=== PATIENT | female | born 1950 | race Caucasian/White ===

== ENCOUNTER → 2018-06-07 | Outpatient (CLI) | payer MEDICARE ==
[2018-06-07 14:58] LABS: HCT 41.3 % (34.0-46.0); HGB 14.4 gm/dL (11.4-16.0); MCH 28.2 pg (25.0-35.0); MCV 80.7 fL (80.0-100.0); Mean Platelet Volume 7.6; Platelet Count 350 k/uL (150-450); RBC 5.11 m/uL (3.80-5.40); RDW 14.6 % (11.5-15.5); WBC 13.7 k/uL (3.8-10.6)
== END ==
LOC: LABPAT 14:01
PROVIDERS: ATTEND Anesthesiology
DX: Z01.818 Encounter for other preprocedural examination (principal); Z01.812 Encounter for preprocedural laboratory examination
CPT/HCPCS: 36415; 85027; 93005

== ENCOUNTER 2018-06-10 07:04 | Inpatient (IN) | payer MEDICARE ==
[2018-06-02 16:11] VITALS: BMI 32.0
[~2018-06-10 07:04] MED LIST: DEXAMETHASONE SOD PHOSPHATE 10 MG/ML 1 ML VIAL IV ONE; LIDOCAINE 1% 20 ML VIAL (10MG/ML) FOR IV START INTRADERMA PRN; MIDAZOLAM (PF) 2 MG/2 ML VIAL IV PRN; ceFAZolin 1,000 MG in DEXTROSE/WATER 1 50ML.BAG IVPB ONE; fentaNYL (PF) 50 MCG/ML 2 ML AMP IV PRN; fentaNYL (PF) 50 MCG/ML 20 ML VIAL IVP PRN
[2018-06-10] MEDS: LACTATED RINGERS 1,000 ML IV SCH ×2 (08:01→10:59)
[2018-06-10] MEDS ORDERED: ONDANSETRON 4 MG/2 ML VIAL IVP ONE (08:02)
[2018-06-10] MEDS ORDERED: LIDOCAINE 1% INJ 10MG/ML (20 ML MDV) ONE (09:03)
[2018-06-10] MEDS ORDERED: fentaNYL (PF) 50 MCG/ML 2 ML AMP ONE (09:03)
[2018-06-10] MEDS ORDERED: MIDAZOLAM 2 MG/2 ML VIAL ONE (09:03)
[2018-06-10] MEDS ORDERED: PROPOFOL 10 MG/ML 20 ML VIAL IV ONE (09:03)
[2018-06-10] MEDS ORDERED: ROCURONIUM BROMIDE 10 MG/ML 10 ML VIAL IV ONE (09:03)
[2018-06-10] MEDS ORDERED: SUCCINYLCHOLINE CHLORIDE 100 MG/5 ML SYR IV ONE (09:03)
[2018-06-10] MEDS ORDERED: HYDROmorphone (PF) 1 MG/ML ONE (09:03)
[2018-06-10] MEDS ORDERED: ROPIVACAINE 5 MG/ML 30 ML VIAL MISCELLANE ONE (09:45)
[2018-06-10] MEDS ORDERED: ARIPiprazole 5 MG TAB PO PRN (10:10)
[2018-06-10] MEDS ORDERED: LORazepam 0.5 MG TAB PO PRN (10:10)
[2018-06-10] MEDS ORDERED: LACTATED RINGERS 1,000 ML IV ONE (10:43)
[2018-06-10] MEDS ORDERED: ONDANSETRON 4 MG/2 ML VIAL IVP PRN (10:44)
[2018-06-10] MEDS ORDERED: IPRATROPIUM-ALBUTEROL 3 ML NEB IH PRN (10:44)
[2018-06-10] MEDS ORDERED: DEXTROSE 5%-0.45% NACL 1,000 ML IV SCH (10:44)
[2018-06-10] MEDS ORDERED: HYDROmorphone 1 MG/ML 1 ML SYRINGE IVP ONE ×2 (11:21→18:13)
[2018-06-10] MEDS: KETOROLAC 30 MG/ML 1 ML VIAL IVP SCH ×2 (11:21→18:30)
[2018-06-10 11:29] LABS: ABG Base Excess -0.9 mmol/L; ABG HCO3 27 mmol/L (21-25); ABG Oxygen Saturation 95.3 % (94-97); ABG PCO2 63 mmHg (35-45); ABG PH 7.24 (7.35-7.45); ABG PO2 97 mmHg (83-108); ABG TCO2 29 mmol/L (19-24)
--- NOTE | 2018-06-10 11:37 | XR ---
EXAMINATION TYPE: XR chest 1V portable DATE OF EXAM: 06/10/2018 COMPARISON: 04/11/2018 HISTORY: Post chest tube TECHNIQUE: Single frontal view of the chest is obtained. FINDINGS: There is a small 5% right apical pneumothorax with subcutaneous emphysema. Diffuse interst itial pattern with bilateral consolidation and tiny bilateral pleural effusion. Heart size stable. Ar thropathy of the shoulders. Underlying chronic interstitial lung disease suspected. Correlate for TABLE WORKER PACKAGER D. IMPRESSION: 1. There is a right-sided chest tube with an approximate 5% right apical pneumothorax. 2. Interstitial pattern appears increased from the prior exam correlate for interstitial congestion o r pneumonitis. Bilateral infiltrate and tiny effusion are also noted.
--- NOTE | 2018-06-10 12:29 | OP ---
OPERATIVE REPORT PREOPERATIVE DIAGNOSIS: Interstitial lung disease. POSTOPERATIVE DIAGNOSIS: Interstitial lung disease. PROCEDURE: Right VATS lung biopsy. SURGEON: Meliton Duncan MD. CHIEF OPTOMETRY SERVICE: VADIM Fernandez. ANESTHESIA: General. SPECIMEN: 1. Right upper lobe wedge. 2. Right lower lobe wedge. ESTIMATED BLOOD LOSS: Minimal. COMPLICATIONS: None. INDICATION: The patient is a 67-year-old female with a past medical history significant for obstructive sleep apnea, COPD, tobacco use and a vocal cord polyp who reports chronic cough and chronic dyspnea on exertion. A lung biopsy was requested by the pulmonary service. The risks, benefits, and alternatives to VATS lung biopsy were discussed with the patient. All of her questions were answered. Consent was obtained. FINDINGS: There were no obvious masses noted in the right upper lobe, right middle lobe, or right lower lobe. There was no significant pleural effusion. There was no studding on the chest wall. The lung tissue itself appeared to have a fair amount of anthracosis. PROCEDURE IN DETAIL: The patient was taken the operating room and placed supine on the operating table. After induction of anesthesia, a double-lumen endotracheal tube was placed by the anesthesia service. Its position was confirmed using a bronchoscope. The patient was then placed in a left lateral decubitus position with the right side up. Care was taken to pad all pressure points. The right chest and flank were then prepped and draped in the usual sterile fashion. With the right lung deflated, the right chest was entered at approximately the 6th intercostal space along the posterior axillary line. A thoracoscope was introduced. Initial inspection revealed no significant pleural effusion. There was no studding along the chest wall. There were no obvious masses in the lung. Two additional working ports were then placed under direct vision. A wedge resection of the right upper lobe was then performed using the endoscopic stapling device with two 45 mm purple loads. The staple line was intact at the completion of this procedure. A second wedge resection was then performed in the right lower lobe in a similar fashion. Two 45 mm purple loads were again used. Again the staple line was intact. Both biopsies were sent to microbiology and pathology. Hemostasis was assured. A straight 28-[place] chest tube was then placed and directed posteriorly towards the apex. The right lung was inflated and appeared to expand nicely. There was no obvious air leak. The wounds were then closed in layers. Sterile dressings were applied. The patient appeared to tolerate the procedure well. There were no immediate complications. She was extubated at the completion of the case and returned to the recovery room in stable condition. BA / GUILLAUME: [id number] / MTDD
[2018-06-10] MEDS: IPRATROPIUM-ALBUTEROL 3 ML NEB IH SCH ×3 (12:35→21:30)
[2018-06-10] MEDS: traMADol 50 MG TAB PO SCH ×3 (15:28→22:11)
[2018-06-10] MEDS ORDERED: HYDROmorphone 0.5 MG/0.5 ML SYRINGE IVP STA (18:11)
--- NOTE | 2018-06-10 18:16 | CONS ---
CONSULTATION PULMONARY CRITICAL CARE CONSULTATION: DATE OF SURGERY: 06/10/2018 This is a 67-year-old female who was referred to Dr. Duncan for consideration of a lung biopsy. The patient was seen by Dr. Maldonado for shortness of breath and interstitial lung disease. The patient had a biopsy done today. She is resting comfortably. The biopsy was done on the right side. The patient is resting comfortably, as I mentioned. I did explain to her that it would take a number of days to get the biopsy results. She apparently presented with an abnormal chest x-ray and CT scan and had symptoms of shortness of breath. She was seen in the office by Dr. Maldonado. She was referred to Dr. Duncan for a biopsy. PAST MEDICAL HISTORY: Includes: 1. Sleep apnea syndrome. 2. Vocal cord polyp. 3. Interstitial lung disease. 4. Hyperlipidemia. 5. GERD. 6. Depression. 7. COPD. 8. Anxiety. SURGICAL HISTORY: Includes: 1. x3. 2. D&C. 3. Tonsillectomy and adenoidectomy. 4. Excision of vocal cord polyp. HOME MEDICATIONS: Include: 1. Abilify. 2. Ativan. 3. Atorvastatin. 4. Calcium replacement. 5. Fish oil. 6. Nicotine patch. 7. Omeprazole. 8. Pamelor. 9. Zoloft. 10.Tramadol. 11.Vitamin C. ALLERGIES: LEVAQUIN. SOCIAL HISTORY: Positive for significant tobacco history. She quit in 2017. Social alcohol only. No illicit drug use. FAMILY HISTORY: Positive for CHF and cancer. REVIEW OF SYSTEMS: CONSTITUTIONAL: Negative. NEUROLOGIC: Negative. HEENT: Negative. CARDIOVASCULAR: Negative. PULMONARY: Shortness of breath, dry non-productive cough. GI/: Negative. RHEUMATOLOGIC/IMMUNOLOGIC: Negative. ENDOCRINOLOGIC: Negative. PHYSICAL EXAMINATION: Current vital signs include a temperature of 97.2, heart rate 89, respiratory rate 20, blood pressure 117/58, room-air saturation 93%. Appears in no acute distress. HEENT examination is grossly unremarkable. Mucous membranes are moist. No oral lesions. NECK: Supple. Full range of motion. No adenopathy or thyromegaly. Neck veins are flat. Cardiovascular examination reveals regular rhythm and rate. Heart rate about 85 beats per minute. S1, S2 normal. No S3, S4 or murmur. LUNGS: Some bibasilar crackles. She does not take deep breaths because of her recent surgery. Breath sounds are equal bilaterally. No rhonchi. ABDOMEN: Soft. Bowel sounds are heard. Extremities are intact. No cyanosis, clubbing or edema. LABS: Reviewed. The patient had a blood gas showing a PO2 of 97 and pCO2 of 63 and a pH of 7.24. This is consistent with mild hypercapnic respiratory failure. No additional labs to report. Chest x-ray shows some interstitial changes and a chest tube on the right side. Looking at the Pleur-evac, there was no air leak. ASSESSMENT: 1. Postoperative day number zero, status post right-sided lung biopsy, video-assisted, for interstitial lung disease. 2. Shortness of breath and dry non-productive cough secondary to interstitial lung disease. 3. Sleep apnea syndrome. 4. Vocal cord polyp. 5. Hyperlipidemia. 6. Gastroesophageal reflux disease. 7. Depression. 8. Chronic obstructive pulmonary disease. 9. Anxiety. PLAN: The patient had a biopsy done today. She is doing relatively well. She may be discharged tomorrow. The patient does not have an air leak. The patient is not requiring any supplemental oxygen. I did explain to her it may take a couple weeks before we get the actual official biopsy results, as typically these samples are sent to [facility] for evaluation. She understands. She will follow up with my partner. No additional recommendations are made. MMODL / IJN: [id number] /
[2018-06-10] MEDS: HEPARIN SODIUM,PORCINE 5,000 UNIT/ML 1 ML VIAL SQ SCH (18:32)
[2018-06-10] MEDS: ceFAZolin IN SWFI 2 GM/20 ML SYRINGE IVP SCH (20:51)
[2018-06-10] MEDS ORDERED: NORTRIPTYLINE 25 MG CAP PO SCH (21:00)
[2018-06-10] MEDS ORDERED: SERTRALINE 50 MG TAB PO SCH (21:00)
[2018-06-10] MEDS ORDERED: ATORVASTATIN 80 MG TAB PO SCH (21:00)
[2018-06-11] MEDS: KETOROLAC 30 MG/ML 1 ML VIAL IVP SCH ×2 (00:20→06:31)
[2018-06-11] MEDS: HEPARIN SODIUM,PORCINE 5,000 UNIT/ML 1 ML VIAL SQ SCH ×2 (00:21→09:27)
[2018-06-11] MEDS: ceFAZolin IN SWFI 2 GM/20 ML SYRINGE IVP SCH (02:59)
--- NOTE | 2018-06-11 06:59 | XR ---
EXAMINATION TYPE: XR chest 1V DATE OF EXAM: 06/11/2018 HISTORY: post lung biopsy. REFERENCE: Previous study dated 06/10/2018. FINDINGS: Right pleural drain remains in place. There continues to be tiny right apical pneumothorax. The heart is not enlarged. Pleural spaces are clear. There is vascular congestion and interstitial ch hitesh. This may have worsened slightly from previous. This may represent pulmonary edema or interstiti al lung disease. IMPRESSION: 1. TINY, RESIDUAL APICAL PNEUMOTHORAX ON THE RIGHT. 2. VASCULAR CONGESTION AND INTERSTITIAL CHANGE LIKELY REFLECTING PULMONARY EDEMA.
[2018-06-11] MEDS ORDERED: PANTOPRAZOLE 40 MG TABLET PO SCH (07:30)
[2018-06-11] MEDS: IPRATROPIUM-ALBUTEROL 3 ML NEB IH SCH ×2 (07:56→11:57)
[2018-06-11 07:59] LABS: Calcium 8.8 mg/dL (8.4-10.2); Potassium 4.3 mmol/L (3.5-5.1)
[2018-06-11 08:21] LABS: Basophils # (A) 0.1 k/uL (0-0.2); Basophils % (A) 0 %; Eosinophils # (A) 0.4 k/uL (0-0.7); Eosinophils % (A) 3 %; HCT 32.7 % (34.0-46.0); Lymphocytes # (A) 3.3 k/uL (1.0-4.8); Lymphocytes % (A) 28 %; MCH 27.5 pg (25.0-35.0); MCHC 33.7 g/dL (31.0-37.0); MCV 81.6 fL (80.0-100.0); Mean Platelet Volume 6.9; Monocytes # (A) 0.5 k/uL (0-1.0); Monocytes % (A) 4 %; Neutrophils # (A) 7.4 k/uL (1.3-7.7); Neutrophils % (A) 63 %; Platelet Count 280 k/uL (150-450); RBC 4.01 m/uL (3.80-5.40); RDW 14.6 % (11.5-15.5); WBC 11.8 k/uL (3.8-10.6)
[2018-06-11] MEDS ORDERED: NON-FORMULARY DRUG (Omega-3 Fatty Acids/Fish Oil [Fish Oil 1,000 Mg Softgel] 1 EACH) PO SCH (09:00)
[2018-06-11] MEDS ORDERED: ASCORBIC ACID 500 MG TAB PO SCH (09:00)
[2018-06-11] MEDS: traMADol 50 MG TAB PO SCH ×2 (09:26→12:48)
--- NOTE | 2018-06-11 09:50 | P.PN ---
Subjective Progress Note Date: 06/11/18 Principal diagnosis: Interstitial lung disease. Previous medical history of previous tobacco dependence, COPD, nightly home oxygen use, sleep apnea syndrome, vocal cord polyp, hyperlipidemia, GERD, depression. POD 1 right video-assisted thoracoscopic lung biopsy. The patient is currently sitting up in bed in no acute distress. States pain is well controlled on current medication regimen. Denies shortness of breath. Did have an episode last night of chest wall movement with increased pain, this has resolved as of this morning. Chest tube to waterseal, no air leak present. She has ambulated to and from the bathroom. Objective - Vital Signs Vital signs: Vital Signs Temp 99.3 F 06/11/18 04:00 Pulse 93 06/11/18 08:10 Resp 16 06/11/18 04:00 BP 97/64 06/11/18 04:00 Pulse Ox 95 06/11/18 04:00 Intake & Output 06/10/18 06/11/18 06/11/18 18:59 06:59 18:59 Intake Total 2460 400 Output Total 79 107 Balance 2381 293 Weight 77.6 kg Intake: IV 2450 Intake, IV Titration 400 Amount Dextrose 5%-0.45% NaCl 1, 400 000 ml @ 40 mls/hr IV . Q24H [facility] Rx#:[id number] Oral 10 Output: Chest Tube Drainage 107 Chest Tube 107 Urine 1 Estimated Blood Loss 78 Other: # Voids 1 - Constitutional General appearance: Present: cooperative, no acute distress, obese - Respiratory Details: Lung sounds diminished bilaterally, right greater than left. Respirations even , nonlabored. Currently on 2 L nasal cannula with oxygen saturation 95%. Able to achieve 500 mL on incentive spirometry. Strong productive cough. Right pleural chest tube to waterseal, 65 mL serosanguineous drainage overnight, 190 mL since surgery. No air leak present. - Cardiovascular Details: S1, S2 present. Regular rate and rhythm, sinus rhythm on telemetry. Palpable peripheral pulses bilaterally. No edema present. No calf pain or tenderness noted. SCDs present. - Gastrointestinal Gastrointestinal Comment(s): Abdomen soft, nontender, nondistended. Active bowel sounds present 4 quadrants. Tolerating diet. - Genitourinary Genitourinary Comment(s): Continues to void clear, yellow urine. - Integumentary Integumentary Comment(s): Skin is warm and dry with evidence of good perfusion. - Neurologic Neurologic: Present: CNII-XII intact - Musculoskeletal Musculoskeletal: Present: gait normal, strength equal bilaterally - Psychiatric Psychiatric: Present: A&O x's 3, appropriate affect, intact judgment & insight - Allied health notes Allied health notes reviewed: nursing - Labs CBC & Chem 7: 06/11/18 06:14 06/11/18 06:14 Labs: Abnormal Lab Results - Last 24 Hours (Table) 06/10/18 06/11/18 Range/Units 11:27 06:14 WBC 11.8 H (3.8-10.6) k/uL Hgb 11.0 L D (11.4-16.0) gm/dL Hct 32.7 L (34.0-46.0) % ABG pH 7.24 L (7.35-7.45) ABG pCO2 63 H (35-45) mmHg ABG HCO3 27 H (21-25) mmol/L ABG Total CO2 29 H (19-24) mmol/L Microbiology - Last 24 Hours (Table) 06/10/18 10:16 Gram Stain - Preliminary Lung - Right Lower Lobe Tissue Culture - Preliminary 06/10/18 10:16 Gram Stain - Preliminary Lung - Right Upper Lobe Tissue Culture - Preliminary 06/10/18 10:16 Anaerobic Culture - Preliminary Lung - Right Lower Lobe 06/10/18 10:16 Fungal Culture - Preliminary Lung - Right Upper Lobe 06/10/18 10:16 Anaerobic Culture - Preliminary Lung - Right Upper Lobe 06/10/18 10:16 Fungal Culture - Preliminary Lung - Right Lower Lobe - Imaging and Cardiology Chest x-ray: report reviewed, image reviewed Assessment and Plan (1) Interstitial lung disease Current Visit: Yes Status: Chronic Code(s): J84.9 - INTERSTITIAL PULMONARY DISEASE, UNSPECIFIED SNOMED Code(s): 456392809 (2) Sleep apnea syndrome Current Visit: Yes Status: Chronic Code(s): G47.30 - SLEEP APNEA, UNSPECIFIED SNOMED Code(s): 12570748 (3) Hyperlipidemia Current Visit: Yes Status: Chronic Code(s): E78.5 - HYPERLIPIDEMIA, UNSPECIFIED SNOMED Code(s): 47303061 (4) GERD (gastroesophageal reflux disease) Current Visit: Yes Status: Chronic Code(s): K21.9 - GASTRO-ESOPHAGEAL REFLUX DISEASE WITHOUT ESOPHAGITIS SNOMED Code(s): 007244061 (5) Depression Current Visit: Yes Status: Chronic Code(s): F32.9 - MAJOR DEPRESSIVE DISORDER, SINGLE EPISODE, UNSPECIFIED SNOMED Code(s): 58631220 (6) COPD (chronic obstructive pulmonary disease) Current Visit: Yes Status: Chronic Code(s): J44.9 - CHRONIC OBSTRUCTIVE PULMONARY DISEASE, UNSPECIFIED SNOMED Code(s): 21026120 (7) On home oxygen therapy Current Visit: Yes Status: Chronic Code(s): Z99.81 - DEPENDENCE ON SUPPLEMENTAL OXYGEN SNOMED Code(s): 805642344713 Plan: 1. Chest tube was clamped. Will release and if no air leak will discontinue chest tube. Will repeat chest x-ray and if stable will discharge to home. 2. Wean O2. Encourage incentive spirometry 10 times every hour while awake. 3. Pain control with current medication regimen. 4. Bronchodilators per pulmonology. 5. GI prophylaxis with Protonix, DVT prophylaxis with subcu heparin, SCDs. 6. Increase activity, ambulate in hallway. 7. Follow-up appointments made for Dr. Duncan and Dr. Maldonado. Time with Patient: Greater than 30
[2018-06-11 10:41] VITALS: RESP 18
--- NOTE | 2018-06-11 12:31 | P.PN ---
Subjective Progress Note Date: 06/11/18 Principal diagnosis: Interstitial lung disease unclear etiology This is a very pleasant 67-year-old female patient who follows with Dr. Collado as her primary care physician. She has a history of hyperlipidemia, GERD, depression, anxiety. She also has history of obstructive sleep apnea and interstitial lung disease and follows with Dr. Maldonado in our office for the same. He wanted further investigation regarding the etiology of the ILD and she was admitted electively for a open lung biopsy form by Dr. Duncan yesterday. Pathology is pending. Today's chest x-ray shows a tiny residual apical pneumothorax on the right with some subcutaneous emphysema. Chest tube to water seal. Chest x-ray is pending. She is currently sitting up in a chair at the bedside. She is awake and alert in no acute distress. She is currently maintaining good O2 saturations in the 90s on 2 L/m per nasal cannula. She's afebrile. Hemodynamically stable. He is working well with the incentive spirometer. Objective - Vital Signs Vital signs: Vital Signs Temp 98.0 F 06/11/18 08:00 Pulse 96 06/11/18 12:12 Resp 18 06/11/18 08:00 BP 107/57 06/11/18 08:00 Pulse Ox 93 L 06/11/18 08:00 Intake & Output 06/10/18 06/11/18 06/11/18 18:59 06:59 18:59 Intake Total 2460 400 240 Output Total 79 107 30 Balance 2381 293 210 Weight 77.6 kg Intake: IV 2450 Intake, IV Titration 400 Amount Dextrose 5%-0.45% NaCl 1, 400 000 ml @ 40 mls/hr IV . Q24H [facility] Rx#:[id number] Oral 10 240 Output: Chest Tube Drainage 107 30 Chest Tube 107 30 Urine 1 Estimated Blood Loss 78 Other: Voiding Method Toilet # Voids 1 - Exam GENERAL EXAM: Alert, active, comfortable in no apparent distress. HEAD: Normocephalic. EYES: Normal reaction of pupils, equal size. NOSE: Clear with pink turbinates. THROAT: No erythema or exudates. NECK: No masses, no JVD. CHEST: No chest wall deformity. Subcutaneous emphysema the right clavicle area. Chest tube to water seal. LUNGS: Equal air entry with no crackles, wheeze, rhonchi or dullness. CVS: S1 and S2 normal with no audible murmur, regular rhythm. ABDOMEN: No hepatosplenomegaly, normal bowel sounds, no guarding or rigidity. SPINE: No scoliosis or deformity SKIN: No rashes CENTRAL NERVOUS SYSTEM: No focal deficits, tone is normal in all 4 extremities. EXTREMITIES: There is no peripheral edema. No clubbing, no cyanosis. Peripheral pulses are intact. - Labs CBC & Chem 7: 06/11/18 06:14 06/11/18 06:14 Labs: Abnormal Lab Results - Last 24 Hours (Table) 06/11/18 Range/Units 06:14 WBC 11.8 H (3.8-10.6) k/uL Hgb 11.0 L D (11.4-16.0) gm/dL Hct 32.7 L (34.0-46.0) % Microbiology - Last 24 Hours (Table) 06/10/18 10:16 Gram Stain - Preliminary Lung - Right Upper Lobe Tissue Culture - Preliminary 06/10/18 10:16 Gram Stain - Preliminary Lung - Right Lower Lobe Tissue Culture - Preliminary 06/10/18 10:16 Anaerobic Culture - Preliminary Lung - Right Lower Lobe 06/10/18 10:16 Fungal Culture - Preliminary Lung - Right Upper Lobe 06/10/18 10:16 Anaerobic Culture - Preliminary Lung - Right Upper Lobe 06/10/18 10:16 Fungal Culture - Preliminary Lung - Right Lower Lobe Assessment and Plan Assessment: Impression: #1 Interstitial lung disease, status post right-sided lung biopsy, video- assisted. Postoperative day #1. Chest tube in place. #2 Shortness of breath dry nonproductive cough secondary to interstitial lung disease. #3 Obstructive sleep apnea. #4 Vocal cord polyp. #5 Hyperlipidemia. #6 Gastroesophageal reflux disease. #7 chronic obstructive pulmonary disease. #8 Anxiety/depression. Plan: The patient was seen and evaluated by Dr. Rosales. Chest x-ray was reviewed. Chest tube to water seal. No air leak currently. If no significant complications once the chest tube is removed she will be discharged home today. She'll follow up with Dr. Maldonado in our office. She'll continue utilizing incentive spirometer. Continue home medications. I, the cosigning physician, performed a history & physical examination of the patient. Lungs sounds scattered rhonchi in the right. Maintaining good O2 saturations in the 90s on 2 L/m per nasal cannula. I discussed the assessment and plan of care with my nurse practitioner, Mari Reyes. I attest to the above note as dictated by her.
[2018-06-11 13:29] VITALS: BP 115/72; PULSE 92; TEMP 99.3
--- NOTE | 2018-06-12 09:31 | P.DS ---
Providers Date of admission: 06/10/18 07:04 Expected date of discharge: 06/11/18 Attending physician: Meliton Duncan Consults: 06/10/18 13:36 Consult Physician Routine Consulting Provider: Wilson Rosales Reason/Comments: s/p lung biopsy, Dr. Maldonado's patient Do you want consulting provider notified?: Yes Primary care physician: Wilson Collado - Discharge Diagnosis(es) (1) Interstitial lung disease Status: Chronic (2) Sleep apnea syndrome Status: Chronic (3) Hyperlipidemia Status: Chronic (4) GERD (gastroesophageal reflux disease) Status: Chronic (5) Depression Status: Chronic (6) COPD (chronic obstructive pulmonary disease) Status: Chronic (7) On home oxygen therapy Status: Chronic Hospital Course: FINAL DIAGNOSIS: 1. Interstitial lung disease 2. Previous tobacco dependence 3. COPD 4. Nightly home oxygen use 5. Sleep apnea syndrome 6. Vocal cord polyp 7. Hyperlipidemia 8. GERD 9. Depression PRINCIPAL PROCEDURE: 1. Right video-assisted thoracoscopic lung biopsy HISTORY OF PRESENT ILLNESS: This is a 67-year-old female patient who follows with Dr Collado and Dr. Maldonado on an outpatient basis. She is a history of heavy tobacco use was originally diagnosed with a polyp on her vocal cord which was excised by ENT. Since that time she has continued to report a chronic cough and chronic dyspnea on exertion. She has followed up with Dr. Maldonado and did have a normal pulmonary function test. A computed tomography scan of the chest was performed in November 2017 and demonstrated no evidence of lung mass or pleural effusion, but there was evidence of interstitial lung disease involving the upper and lower lobes suggestive of pulmonary fibrosis. Dr. Maldonado requested a lung biopsy and the patient was referred to Dr. Duncan from cardiothoracic surgery. She was recommended to undergo thoracoscopic lung biopsy. The usual perioperative course was discussed in detail with the patient and her family, all risks and benefits were explained, all questions were answered, and consent was obtained to proceed with surgery. HOSPITAL COURSE: The patient was brought to the hospital on 06/10/2018, taken to the preoperative area, prepared in the usual fashion, and subsequently taken to the operating room where Dr. Duncan performed a right video-assisted thoracoscopic lung biopsy. Upon completion of surgery the patient was extubated and taken to the recovery room where she was recovered and monitored hemodynamically. She was eventually admitted to 3 S. cardiac stepdown unit for further monitoring. Her chest tube was placed to waterseal the night of surgery as she had no air leak, follow-up x-ray in the morning was stable, she had no air leak, and her right-sided chest tube was discontinued the day after surgery. Her oxygen was titrated down, she was tolerating oral diet, her pain was controlled, and she was ready to be discharged to home on postoperative day #1. She received written and verbal instruction regarding her medications, activity restrictions, signs and symptoms requiring physician notification, and follow-up appointments. COMPLICATIONS: The patient experienced no postoperative complications. Patient Condition at Discharge: Stable Plan - Discharge Summary Discharge Rx Participant: No New Discharge Prescriptions: Continue Nortriptyline HCl [Pamelor] 25 mg PO HS ARIPiprazole [Abilify] 5 mg PO DAILY PRN PRN Reason: Anxiety Omeprazole [PriLOSEC] 20 mg PO AC-BRKFST Atorvastatin [Lipitor] 80 mg PO HS Sertraline [Zoloft] 150 mg PO HS [place]-3 Fatty Acids/Fish Oil [Fish Oil 1,000 mg Softgel] 1 cap PO DAILY Ascorbic Acid [Vitamin C] 1,000 mg PO DAILY traMADol HCL [Ultram] 50 mg PO Q12H PRN PRN Reason: Pain LORazepam [Ativan] 0.5 mg PO DAILY PRN PRN Reason: Anxiety Albuterol Inhaler [Ventolin Hfa Inhaler] 1 - 2 puff INHALATION RT-Q6H PRN PRN Reason: Dyspnea Discharge Medication List ARIPiprazole [Abilify] 5 mg PO DAILY PRN 06/02/18 [History] Albuterol Inhaler [Ventolin Hfa Inhaler] 1 - 2 puff INHALATION RT-Q6H PRN [History] Ascorbic Acid [Vitamin C] 1,000 mg PO DAILY 06/02/18 [History] Atorvastatin [Lipitor] 80 mg PO HS 06/02/18 [History] LORazepam [Ativan] 0.5 mg PO DAILY PRN 06/02/18 [History] Nortriptyline HCl [Pamelor] 25 mg PO HS 06/02/18 [History] [place]-3 Fatty Acids/Fish Oil [Fish Oil 1,000 mg Softgel] 1 cap PO DAILY [History] Omeprazole [PriLOSEC] 20 mg PO AC-BRKFST 06/02/18 [History] Sertraline [Zoloft] 150 mg PO HS 06/02/18 [History] traMADol HCL [Ultram] 50 mg PO Q12H PRN 06/02/18 [History] Follow up Appointment(s)/Referral(s): Andreia Maldonado MD [STAFF PHYSICIAN] - 06/14/18 11:00 am Meliton Duncan MD [STAFF PHYSICIAN] - 06/24/18 10:00 am Patient Instructions/Handouts: Video Assisted Thoracoscopic Surgery (DC) Activity/Diet/Wound Care/Special Instructions: DISCHARGE INSTRUCTIONS: 1. No driving for 2 weeks, or until physician gives their ok. 2. The patient should sleep in their own bed, no medical bed needed. 3. No lifting, pushing, or pulling more than 10 pounds for 2 weeks. The physician will advise of any restriction changes. 4. Continue pain control per as needed orders. 5. Continue with incentive spirometry and splinting until otherwise directed by the physician. 6. May shower daily beginning 06/13/2018. Please leave dressing on until then. May reinforce current dressing if draining. 7. Routine incision care. No powders, lotions, ointments on incisions. 8. Please call surgeon/FINAL ASSEMBLY WORKER for temp greater than 101 F or purulent drainage from incisions. ALBARO [place] (Please call with any concerns) Discharge Disposition: HOME SELF-CARE
== END 2018-06-11 13:34 | disposition home or self-care (01) | DRG 165 ==
LOC: 2ORMAIN 07:04 → 3SCARD 10:27
PROVIDERS: ADMIT Surgery; ATTEND Surgery
PROC: 0BBC4ZZ Excision of Right Upper Lung Lobe, Percutaneous Endoscopic Approach (ICD-10-PCS; 2018-06-10)
PROC: 0BBF4ZZ Excision of Right Lower Lung Lobe, Percutaneous Endoscopic Approach (ICD-10-PCS; principal; 2018-06-10 09:00)
DX: J84.9 Interstitial pulmonary disease, unspecified (principal); E78.5 Hyperlipidemia, unspecified; K21.9 Gastro-esophageal reflux disease without esophagitis; F32.9 Major depressive disorder, single episode, unspecified; J44.9 Chronic obstructive pulmonary disease, unspecified; J38.1 Polyp of vocal cord and larynx; F41.9 Anxiety disorder, unspecified; G47.33 Obstructive sleep apnea (adult) (pediatric); Z99.81 Dependence on supplemental oxygen; Z87.891 Personal history of nicotine dependence; Z88.1 Allergy status to other antibiotic agents; Z82.49 Family history of ischemic heart disease and other diseases of the circulatory system; Z80.9 Family history of malignant neoplasm, unspecified
CPT/HCPCS: 36415; 71045; 80048; 82805; 85025; 85027; 87070; 87075; 87102; 87205; 88307; 93005; 94640